=== PATIENT | male | born 1975 | race Caucasian/White ===

== ENCOUNTER 2022-11-26 12:12 | Day surgery (SDC) | payer OTHER ==
[2022-11-24 15:20] VITALS: BMI 28.7
[2022-11-26 12:41] VITALS: TEMP 97.6
[2022-11-26] MEDS: LACTATED RINGERS 1,000 ML IV SCH ×2 (12:53→13:06)
[2022-11-26] MEDS ORDERED: PROPOFOL 10 MG/ML 20 ML VIAL IV ONE (13:07)
--- NOTE | 2022-11-26 13:24 | P.PCN ---
Date of Procedure: 11/26/22 Procedure(s) Performed: BRIEF HISTORY: Patient is a 47-year-old pleasant male scheduled for an elective colonoscopy as a part of screening for colon cancer. PROCEDURE PERFORMED: Colonoscopy with snare polypectomy. PREOPERATIVE DIAGNOSIS: Screening for colon cancer. IV sedation per Anesthesia. PROCEDURE: After informed consent was obtained, the patient, was brought into the endoscopy unit. IV sedation was administered by Anesthesia under continuous monitoring. Digital rectal examination was normal. Initially the Olympus CF-160 flexible video colonoscope was then inserted in the rectum, gradually advanced into the cecum without any difficulty. Careful examination was performed as the scope was gradually being withdrawn. Ileocecal valve and the appendiceal orifice were visualized and appeared normal. Prep was excellent. Mucosa of the cecum, ascending colon, transverse colon, descending colon, sigmoid colon, and rectum appeared normal. In the rectum there was a 3 mm and 6 mm polyps removed by snare polypectomy. Retroflexion was performed in the rectum and no lesions were seen. The patient tolerated the procedure well. IMPRESSION: 3 mm and 6 mm rectal polyp status post polypectomy Rest of the colon appeared normal RECOMMENDATIONS: Findings of this examination were discussed with the patient as well as his family. He was advised to follow with the biopsy results. If the biopsy reveals adenoma he can have a repeat colonoscopy in 5 years..
[2022-11-26 13:43] VITALS: BP 130/90; PULSE 78; RESP 16
== END 2022-11-26 14:05 | disposition home or self-care (01) ==
LOC: ORWHC2ENDO 12:12
PROVIDERS: ATTEND Internal Medicine Gastroenterology
DX: Z12.11 Encounter for screening for malignant neoplasm of colon (principal); D12.8 Benign neoplasm of rectum
CPT/HCPCS: 88305; 45385; J2704

== ENCOUNTER → 2023-02-05 | Outpatient (CLI) | payer OTHER ==
--- NOTE | 2023-02-10 18:50 | MR ---
EXAMINATION TYPE: MR foot LT wo/w con DATE OF EXAM: 02/05/2023 COMPARISON: NONE HISTORY: 47-year-old male M87.075, Pain left foot attn. to big toe, swelling and redness Technique: Multiplanar, multisequence images of the left forefoot/midfoot were obtained before and af ter administration of 10 mL intravenous Gadavist gadolinium contrast. FINDINGS: There is [id number] degenerative change at the first MTP joint. There is additional degenerativ e change at the first metatarsal sesamoid joints, particularly the fibular sesamoid with reactive sub chondral marrow signal change on the metatarsal side of the joint as well. There is a bipartite fibular sesamoid and both medial and lateral sesamoids demonstrate diffuse edema . There is preserved fatty marrow signal on T1-weighted images. Corresponding postcontrast enhancemen t of the sesamoid bones. Moderate effusion within the first MTP joint. No suspicious bone marrow replacement. IMPRESSION: 1. 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 2. While there is intense edema of both sesamoid bones, there is no henry marrow replacement or fragm entation seen at this time to clearly indicate aseptic necrosis. Edema reactive to underlying OA, ses amoiditis, and early AVN are considerations. If persistent concern for aseptic necrosis, consider rad iographic follow-up to assess for any developing fragmentation. 3. [id number] first MTP joint OA.
== END | disposition home or self-care (01) ==
LOC: RADMRIMAIN 12:04
PROVIDERS: ATTEND Podiatrist
DX: M19.072 Primary osteoarthritis, left ankle and foot (principal); M87.075 Idiopathic aseptic necrosis of left foot; R60.0 Localized edema
CPT/HCPCS: 73720; A9585